=== PATIENT | male | born 1940 | race Two or more races ===

== ENCOUNTER 2017-09-27 08:09 | Outpatient (CLI) | payer OTHER | END 2017-09-27 08:57 | disposition HB | LOC: LAB 08:09 | DX: E11.620 Type 2 diabetes mellitus with diabetic dermatitis (principal); E78.2 Mixed hyperlipidemia; I10 Essential (primary) hypertension; K62.5 Hemorrhage of anus and rectum; E55.9 Vitamin D deficiency, unspecified; E21.0 Primary hyperparathyroidism; E03.8 Other specified hypothyroidism; M10.30 Gout due to renal impairment, unspecified site; N40.0 Benign prostatic hyperplasia without lower urinary tract symptoms ==

== ENCOUNTER 2017-09-27 09:30 | Outpatient (CLI) | payer OTHER | END 2017-09-27 09:40 | disposition home or self-care (01) | LOC: SONOGRAMA 09:30 | DX: M99.85 Other biomechanical lesions of pelvic region (principal); R10.811 Right upper quadrant abdominal tenderness ==

== ENCOUNTER 2017-09-27 09:41 | Outpatient (CLI) | payer OTHER | END 2017-09-27 09:43 | disposition home or self-care (01) | LOC: RAD 09:41 | DX: M54.5 Low back pain (principal); S10.80XA Unspecified superficial injury of other specified part of neck, initial encounter ==

== ENCOUNTER 2018-05-01 12:51 | Outpatient (CLI) | payer OTHER | END 2018-05-01 13:58 | disposition home or self-care (01) | LOC: LAB 12:51 | DX: B35.1 Tinea unguium (principal) ==

== ENCOUNTER 2018-05-27 12:28 | Outpatient (CLI) | payer OTHER | END 2018-05-27 12:34 | disposition home or self-care (01) | LOC: LAB 12:28 | DX: B35.1 Tinea unguium (principal) ==

== ENCOUNTER 2018-07-18 12:41 | Outpatient (CLI) | payer OTHER | END 2018-07-18 13:13 | disposition home or self-care (01) | LOC: RAD 12:41 | DX: M16.6 Other bilateral secondary osteoarthritis of hip (principal) ==

== ENCOUNTER 2018-10-16 13:38 | Outpatient (CLI) | payer OTHER ==
[~2018-10-16] VITALS: Ht 170.2 cm; Wt 68.0 kg
== END 2018-10-16 14:00 | disposition home or self-care (01) ==
LOC: OFIC 805 13:38
DX: H90.3 Sensorineural hearing loss, bilateral (principal); R42 Dizziness and giddiness; H93.13 Tinnitus, bilateral

== ENCOUNTER 2018-11-10 09:34 | Outpatient (CLI) | payer OTHER | END 2018-11-10 09:46 | disposition home or self-care (01) | LOC: LAB 09:34 | DX: I10 Essential (primary) hypertension (principal); N40.0 Benign prostatic hyperplasia without lower urinary tract symptoms; E03.8 Other specified hypothyroidism; E78.2 Mixed hyperlipidemia; E55.9 Vitamin D deficiency, unspecified; E11.620 Type 2 diabetes mellitus with diabetic dermatitis ==

== ENCOUNTER 2018-11-17 11:39 | Outpatient (CLI) | payer OTHER ==
[~2018-11-17] VITALS: Ht 152.4 cm; Wt 68.0 kg
== END 2018-11-17 12:00 | disposition home or self-care (01) ==
LOC: OFIC 805 11:39
DX: R42 Dizziness and giddiness (principal); H93.13 Tinnitus, bilateral

== ENCOUNTER → 2018-11-18 | Outpatient (CLI) | payer OTHER | END | disposition home or self-care (01) | LOC: MRI 09:15 | DX: R42 Dizziness and giddiness (principal); H93.13 Tinnitus, bilateral | CPT/HCPCS: 70552; A9575 ==

== ENCOUNTER → 2018-11-24 | Outpatient (CLI) | payer OTHER | END | disposition home or self-care (01) | LOC: NUCLEAR 15:00 | DX: I87.2 Venous insufficiency (chronic) (peripheral) (principal) ==

== ENCOUNTER 2018-12-01 10:37 | Outpatient (CLI) | payer OTHER ==
[~2018-12-01] VITALS: Ht 152.4 cm; Wt 68.0 kg
== END 2018-12-01 11:00 | disposition home or self-care (01) ==
LOC: OFIC 805 10:37
DX: H93.13 Tinnitus, bilateral (principal); H81.49 Vertigo of central origin, unspecified ear; H91.90 Unspecified hearing loss, unspecified ear

== ENCOUNTER 2018-12-26 08:25 | Outpatient (CLI) | payer OTHER ==
[~2018-12-26] VITALS: Ht 152.4 cm; Wt 68.0 kg
== END 2018-12-26 08:45 | disposition home or self-care (01) ==
LOC: OFIC 805 08:25
DX: H93.13 Tinnitus, bilateral (principal); H81.49 Vertigo of central origin, unspecified ear; H91.90 Unspecified hearing loss, unspecified ear

== ENCOUNTER 2019-01-06 11:24 | Outpatient (CLI) | payer OTHER | END 2019-01-06 15:00 | disposition home or self-care (01) | LOC: RAD 11:24 | DX: E03.8 Other specified hypothyroidism (principal); R49.1 Aphonia; R06.2 Wheezing; E04.2 Nontoxic multinodular goiter ==

== ENCOUNTER 2019-08-18 12:00 | Outpatient (CLI) | payer OTHER | END 2019-08-18 12:04 | disposition home or self-care (01) | LOC: LAB 12:00 | DX: E53.8 Deficiency of other specified B group vitamins (principal); E03.8 Other specified hypothyroidism ==

== ENCOUNTER 2019-08-18 14:06 | Outpatient (CLI) | payer OTHER | END 2019-08-18 14:36 | disposition home or self-care (01) | LOC: MRI 14:06 | DX: G20 Parkinson's disease (principal) | CPT/HCPCS: 70551 ==

== ENCOUNTER → 2019-12-01 12:54 | Outpatient (CLI) | payer OTHER | END | disposition home or self-care (01) | LOC: LAB 12:54 | DX: E11.620 Type 2 diabetes mellitus with diabetic dermatitis (principal) ==

== ENCOUNTER → 2020-02-25 10:21 | Outpatient (CLI) | payer OTHER | END | disposition home or self-care (01) | LOC: LAB 10:21 | PROVIDERS: ATTEND Family Medicine Adult Medicine | DX: E11.620 Type 2 diabetes mellitus with diabetic dermatitis (principal); E78.2 Mixed hyperlipidemia; E03.8 Other specified hypothyroidism ==

== ENCOUNTER → 2020-04-05 11:56 | Outpatient (CLI) | payer OTHER | END | disposition home or self-care (01) | LOC: LAB 11:56 | PROVIDERS: ATTEND Urology | DX: N39.0 Urinary tract infection, site not specified (principal); N40.0 Benign prostatic hyperplasia without lower urinary tract symptoms ==

== ENCOUNTER 2020-08-25 09:27 | Outpatient (CLI) | payer OTHER | END 2020-08-25 09:33 | disposition home or self-care (01) | LOC: LAB 09:27 | PROVIDERS: ATTEND Family Medicine Adult Medicine | DX: I11.9 Hypertensive heart disease without heart failure (principal); E11.620 Type 2 diabetes mellitus with diabetic dermatitis; E78.2 Mixed hyperlipidemia; E03.8 Other specified hypothyroidism ==

== ENCOUNTER 2020-11-09 11:34 | Outpatient (CLI) | payer OTHER | END 2020-11-09 11:44 | disposition home or self-care (01) | LOC: RAD 11:34 | PROVIDERS: ATTEND Family Medicine Adult Medicine | DX: M00.852 Arthritis due to other bacteria, left hip (principal) ==

== ENCOUNTER 2021-04-05 08:35 | Outpatient (CLI) | payer OTHER | END 2021-04-05 08:36 | disposition home or self-care (01) | LOC: LAB 08:35 | PROVIDERS: ATTEND Family Medicine Adult Medicine | DX: I11.9 Hypertensive heart disease without heart failure (principal); E11.620 Type 2 diabetes mellitus with diabetic dermatitis; E03.8 Other specified hypothyroidism; E55.9 Vitamin D deficiency, unspecified ==

== ENCOUNTER 2021-11-01 09:00 | Outpatient (CLI) | payer OTHER | END 2021-11-01 09:01 | disposition home or self-care (01) | LOC: LAB 09:00 | PROVIDERS: ATTEND Family Medicine Adult Medicine | DX: D64.9 Anemia, unspecified (principal); E11.9 Type 2 diabetes mellitus without complications; E03.9 Hypothyroidism, unspecified; E78.5 Hyperlipidemia, unspecified; E55.9 Vitamin D deficiency, unspecified; N40.1 Benign prostatic hyperplasia with lower urinary tract symptoms ==

== ENCOUNTER 2022-03-13 12:37 | Emergency (ER) | payer OTHER ==
[~2022-03-13] VITALS: Ht 170.2 cm; Wt 69.9 kg
[2022-03-13] MEDS ORDERED: GLUMETZA500 MG PO (12:46)
[2022-03-13] MEDS ORDERED: CLARITIN10 M1 PO (15:26)
[2022-03-13] MEDS ORDERED: MOMETASONE FURO15 G2 TOP (15:26)
== END 2022-03-13 15:33 | disposition home or self-care (01) ==
LOC: ER 12:37
DX: R21 Rash and other nonspecific skin eruption (principal); E11.9 Type 2 diabetes mellitus without complications; Z79.84 Long term (current) use of oral hypoglycemic drugs; Z88.6 Allergy status to analgesic agent

== ENCOUNTER → 2022-10-04 | Emergency (ER) | payer OTHER ==
[~2022-10-04] VITALS: Ht 170.2 cm; Wt 70.3 kg
[~2022-10-04] MED LIST: CLARITIN10 M1 PO; GLUMETZA500 MG PO; MOMETASONE FURO15 G2 TOP
== END | disposition left against medical advice (07) ==
LOC: ER 11:35
DX: M25.512 Pain in left shoulder (principal); Z88.6 Allergy status to analgesic agent

== ENCOUNTER 2022-10-12 15:17 | Emergency (ER) | payer OTHER ==
[~2022-10-12] VITALS: Ht 170.2 cm; Wt 83.9 kg
== END 2022-10-12 17:15 | disposition home or self-care (01) ==
LOC: ER 15:17
DX: M77.8 Other enthesopathies, not elsewhere classified (principal); M25.512 Pain in left shoulder; E11.9 Type 2 diabetes mellitus without complications; Z79.84 Long term (current) use of oral hypoglycemic drugs; Z88.6 Allergy status to analgesic agent